=== PATIENT | male | born 1950 | race Caucasian/White ===

== ENCOUNTER 2017-12-04 00:20 | Emergency (ER) | payer MEDICARE, OTHER | END 2017-12-04 04:27 | disposition home or self-care (01) | LOC: M ED 00:20 | DX: S01.512A Laceration without foreign body of oral cavity, initial encounter (principal); W01.10XA Fall on same level from slipping, tripping and stumbling with subsequent striking against unspecified object, initial encounter; Y92.9 Unspecified place or not applicable; Y93.9 Activity, unspecified; Y99.9 Unspecified external cause status; I25.10 Atherosclerotic heart disease of native coronary artery without angina pectoris; Z79.82 Long term (current) use of aspirin; Z79.899 Other long term (current) drug therapy | CPT/HCPCS: 12011 ==